=== PATIENT | male | born 1980 | race Caucasian/White ===

== ENCOUNTER 2017-11-11 13:23 | Emergency (ER) | payer OTHER ==
[~2017-11-11] VITALS: Ht 185.4 cm; Wt 82.7 kg
[~2017-11-11 13:23] MED LIST: HUMALOG100 UNIT/1 SC; INSULIN SC; INSULIN SYRING1 EA30 MC; LANTUS 10100 UNITS/ SC; NOHOMEMEDS; OXYCODONE HCL10 MG PO; OXYCODONE5 MG PO; OXYCONTIN15 MG PO; PERCOCET 5/31 TABLET PO; SEROQUEL300 MG PO; ZOFRAN4 MG PO
[2017-11-11 13:55] VITALS: BP 153/108
== END 2017-11-11 15:04 | disposition left against medical advice (07) ==
LOC: EME 13:23
DX: R73.09 Other abnormal glucose (principal); S22.39XA Fracture of one rib, unspecified side, initial encounter for closed fracture; Z53.21 Procedure and treatment not carried out due to patient leaving prior to being seen by health care provider
CPT/HCPCS: 82948